=== PATIENT | female | born 1990 | race Caucasian/White ===

== ENCOUNTER 2021-07-01 17:48 | Inpatient (IN) ==
[2021-07-01] MEDS ORDERED: Dinoprostone 10 MG VAG.SUPP VAGINAL ONE (19:19)
[2021-07-01] MEDS ORDERED: Lactated Ringers 1000 ml BAG 1,000 ML IV ONE (19:19)
[2021-07-01] MEDS ORDERED: Buffered Lidocaine 1% SYRIN 1 ml INTRADERM ONE (19:19)
[2021-07-01 20:28] LABS: Urine Benzodiazepine Screen None Detected (None Detect); Urine Cannabinoids Screen None Detected (None Detect); Urine Opiates Screen None Detected (None Detect)
[2021-07-01 21:06] LABS: Rapid COVID-19 Molecular Undetected (Undetected)
[2021-07-02] MEDS: Lactated Ringers 1000 ml BAG 1,000 ML IV SCH (15:40)
[2021-07-02] MEDS: Oxytocin in LR 20 UNITS/1,000 ML BAG IVPB SCH (16:00)
[2021-07-02 16:02] LABS: Hematocrit 38 % (35-47); Hemoglobin 13.2 g/dL (12.0-16.0); Mean Corpuscular HGB Conc 35 g/dL (31-36); Mean Corpuscular Hemoglobin 33 pg (27-31); Mean Corpuscular Volume 94 fL (80-97); Mean Platelet Volume 9.2 fL (7.4-10.4); Platelet Count 169 10^3/uL (150-450); Red Blood Count 4.04 10^6 /uL (3.70-4.87); Red Cell Distribution Width 13 % (10-15); White Blood Count 11.4 10^3/uL (3.5-10.8)
[2021-07-02 19:17] LABS: ABS Eosinophils 0.2 10^3/ul (0-0.6); ABS Lymphocytes 1.4 10^3/ul (1.0-4.8); ABS Monocytes 0.6 10^3/ul (0-0.8); ABS Neutrophils 9.1 10^3/ul (1.5-7.7); Eosinophil % 1.4 %; Lymphocyte % 12.1 %; Nucleated Red Blood Cells % 0.1
[2021-07-03] MEDS ORDERED: Dinoprostone 10 MG VAG.SUPP VAGINAL ONE (01:11)
[2021-07-03] MEDS: Oxytocin in LR 20 UNITS/1,000 ML BAG IVPB SCH (14:44)
[2021-07-03] MEDS: Lactated Ringers 1000 ml BAG 1,000 ML IV SCH (14:44)
[2021-07-04 07:58] LABS: ABS Eosinophils 0.1 10^3/ul (0-0.6); ABS Lymphocytes 1.3 10^3/ul (1.0-4.8); ABS Monocytes 0.7 10^3/ul (0-0.8); Hematocrit 37 % (35-47); Hemoglobin 13.2 g/dL (12.0-16.0); Lymphocyte % 11.4 %; Mean Corpuscular HGB Conc 35 g/dL (31-36); Mean Corpuscular Hemoglobin 33 pg (27-31); Mean Corpuscular Volume 94 fL (80-97); Mean Platelet Volume 9.6 fL (7.4-10.4); Platelet Count 158 10^3/uL (150-450); Red Blood Count 3.99 10^6 /uL (3.70-4.87); Red Cell Distribution Width 13 % (10-15); White Blood Count 11.2 10^3/uL (3.5-10.8)
[2021-07-04 08:16] LABS: Albumin 3.4 g/dL (3.2-5.2); Albumin/Globulin Ratio 1.2 (1-3); Calcium 9.2 mg/dL (8.6-10.3); Globulin 2.8 g/dL (2-4); Potassium 3.9 mmol/L (3.5-5.0); Total Bilirubin 0.4 mg/dL (0.2-1.0); Total Protein 6.2 g/dL (6.4-8.9); Uric Acid 6.3 mg/dL (2.3-6.6); eGFR CKD-EPI 94.5 (>60)
[2021-07-04] MEDS ORDERED: OBEPIDURAL 250 ML EPIDURAL ONE (14:04)
[2021-07-04] MEDS ORDERED: Phenylephrine 40 mcg/mL 10mL (400mcg) SYRINGE IV PUSH PRN ×2 (15:04)
[2021-07-04] MEDS ORDERED: Sodium Citrate/Citric Acid LIQ 15 ML UDC PO PRN (15:04)
[2021-07-04] MEDS ORDERED: Lactated Ringers 1000 ml BAG 1,000 ML IV ONE (15:04)
[2021-07-04] MEDS: Oxytocin in LR 20 UNITS/1,000 ML BAG IVPB SCH (15:04)
[2021-07-04] MEDS ORDERED: OBEPIDURAL 250 ML EPIDURAL SCH (16:00)
[2021-07-04] MEDS ORDERED: Lactated Ringers 1000 ml BAG 1,000 ML IV SCH (16:00)
[2021-07-04 16:01] LABS: Urine Appearance Cloudy; Urine Bilirubin Negative (Negative); Urine Blood Negative (Negative); Urine Color Straw; Urine Glucose Negative (Negative); Urine Ketones Negative (Negative); Urine Nitrite Negative (Negative); Urine Protein Negative (Negative); Urine Specific Gravity 1.005 (1.002-1.030); Urine Urobilinogen Negative (Negative)
[2021-07-04 16:08] LABS: Urine Bacteria Absent (Absent); Urine Red Blood Cell Trace(0-2/hpf) (Absent); Urine White Blood Cell Absent (Absent)
[2021-07-05] MEDS ORDERED: Lidocaine 1% MPF 5 ML VIAL ONE (05:11)
[2021-07-05] MEDS: Oxytocin in LR 20 UNITS/1,000 ML BAG IVPB SCH (07:31)
[2021-07-05] MEDS ORDERED: ceFOXitin 2 GM IVPREMIX 2 GM/50 ML BAG ONE (08:51)
[2021-07-05] MEDS ORDERED: Sodium Citrate/Citric Acid LIQ 15 ML UDC ONE (08:51)
[2021-07-05] MEDS ORDERED: Lidocaine 2% w/ EPI 1:200,000 MPF 20 ML SDV VIAL ONE (09:08)
[2021-07-05] MEDS ORDERED: fentaNYL 100 mcg/2 ml 50 MCG/ML VIAL ONE (09:08)
[2021-07-05] MEDS ORDERED: Morphine PF AMP (0.5MG/ML) 5 MG/10 ML AMP ONE (09:08)
[2021-07-05] MEDS ORDERED: Oxytocin 10 UNITS/ML 1 ML VIAL ONE ×3 (10:20→11:23)
[2021-07-05] MEDS ORDERED: Naloxone 0.4 mg VIAL 0.4 mg/ml 1 ml VIAL IV PRN ×2 (10:36→11:10)
[2021-07-05] MEDS ORDERED: Ondansetron 4 mg VIAL 2 MG/ML 2 ml VIAL IV PRN (10:36)
[2021-07-05] MEDS ORDERED: diPHENhydraMINE IV 50 MG/ML 1 ml VIAL (BENADRYL) IV PRN (10:36)
[2021-07-05] MEDS ORDERED: Dibucaine 1% OINT 28.35 GM TUBE PR PRN (14:51)
[2021-07-05] MEDS ORDERED: Witch Hazel PAD JAR TOPICAL PRN (14:51)
[2021-07-05] MEDS ORDERED: Glycerin ADULT 2.4 gm SUPP PR PRN (14:51)
[2021-07-05] MEDS ORDERED: Lactated Ringers 1000 ml BAG 1,000 ML IV SCH (15:00)
[2021-07-05] MEDS ORDERED: Oxytocin in LR 20 UNITS/1,000 ML BAG IVPB SCH (15:00)
[2021-07-06 08:21] LABS: ABS Lymphocytes 0.9 10^3/ul (1.0-4.8); ABS Monocytes 0.7 10^3/ul (0-0.8); ABS Neutrophils 10.1 10^3/ul (1.5-7.7); Eosinophil % 0.2 %; Hematocrit 27 % (35-47); Hemoglobin 9.4 g/dL (12.0-16.0); Lymphocyte % 7.5 %; Mean Corpuscular HGB Conc 35 g/dL (31-36); Mean Corpuscular Hemoglobin 33 pg (27-31); Mean Corpuscular Volume 94 fL (80-97); Platelet Count 108 10^3/uL (150-450); Red Cell Distribution Width 13 % (10-15); White Blood Count 11.8 10^3/uL (3.5-10.8)
[2021-07-07 07:44] VITALS: BP 122/67
== END 2021-07-07 11:40 | disposition home or self-care (01) | DRG 540 ==
LOC: MCHOBOUT 17:48 → MCHOB 19:29
PROVIDERS: ADMIT Midwife; ATTEND Obstetrics & Gynecology